=== PATIENT | female | born 1945 | race Caucasian/White ===

== ENCOUNTER 2018-05-31 18:49 | Inpatient (IN) | payer OTHER ==
[~2018-05-31] VITALS: Ht 160 cm; Wt 81.4 kg
[~2018-05-31 18:49] MED LIST: APAP/HYDROCODON1 T13 PO; ASPIRIN81 MG PO; BENAZEPRIL10 M1 PO; BOOST PO; CALCIUM 500 + D1 TA1 PO; CEFTRIAXON1 GM/50 M1 IV; FERROUS SULFAT325 M2 PO; FISH OIL1000 MG PO; GARLIC OIL NA1000 MG PO; GLUCOSAMINE500 MG PO; HEP5I SC; KEY-E400 IU PO; LAC PO; LORATADINE10 M2 PO; MULTIPLE VITAMI1 TA3 PO; OMEPRAZOLE DR20 M1 PO; VAN1PM IV; VITAMIN B12 PO; VITAMIN C500 M4 PO; [UNRECOGNIZED DRUG - CODE] PO
[2018-05-31 18:57] VITALS: Ht 160 cm; Wt 81.4 kg
[2018-05-31 19:32] LABS: PLATELET COUNT 209 x10^3mcL (130-400); RED CELL DISTRIBUTION WIDTH 14.4 % (11.5-14.5)
[2018-05-31 19:35] LABS: CALCIUM 8.3 mg/dL (8.5-10.1); CHLORIDE SERUM 95 mmol/L (98-107); GLUCOSE SERUM 169 mg/dL (74-106); POTASSIUM SERUM 4.1 mmol/L (3.5-5.1); SODIUM SERUM 130 mmol/L (136-145)
[2018-05-31 19:40] LABS: ALBUMIN 3.6 g/dL (3.4-5.0); ALKALINE PHOSPHATASE 80 U/L (46-116); ALT/SGPT 20 U/L (14-59); AST/SGOT 18 U/L (15-37); TOTAL PROTEIN, SERUM 5.9 g/dL (6.4-8.2)
[2018-05-31 20:42] LABS: ATYPICAL LYMPH 6 %; BAND NEUTROPHIL 1 % (0-10); BASOPHIL 0 % (0-2); BLAST 6 % (0); MONOCYTE 4 % (0-7); MYELOCYTE 1 % (0-2); SEGMENTED NEUTROPHILS 8 % (37-75)
[2018-05-31 20:43] LABS: rbc morphology (normal/abnorm) ABNORMAL (NORMAL)
[2018-05-31 20:48] LABS: PLATELET MORPHOLOGY PLATELETS NORMAL
[2018-05-31 20:49] LABS: PATH REVIEW for HEMA YES
[2018-05-31] MEDS ORDERED: GABAPENTIN100 M2 PO (21:03)
[2018-05-31 22:51] VITALS: BP 125/72
[2018-06-01 04:18] LABS: microscopic required? NO
[2018-06-01 04:35] LABS: urine erythrocyte NEGATIVE (NEGATIVE)
[2018-06-01 05:19] VITALS: BP 125/68
[2018-06-01 06:34] LABS: PLATELET COUNT 211 x10^3mcL (130-400); RED CELL DISTRIBUTION WIDTH 14.5 % (11.5-14.5)
[2018-06-01 06:40] LABS: CALCIUM 8.5 mg/dL (8.5-10.1); CARBON DIOXIDE 30.6 mmol/L (21-32); CHLORIDE SERUM 101 mmol/L (98-107); CREATININE SERUM 0.6 mg/dL (0.6-1.0); GLUCOSE SERUM 83 mg/dL (74-106); POTASSIUM SERUM 4.3 mmol/L (3.5-5.1); SODIUM SERUM 136 mmol/L (136-145)
[2018-06-01 08:48] VITALS: BP 137/68
[2018-06-01 10:07] VITALS: BP 137/68
[2018-06-01 12:56] LABS: BAND NEUTROPHIL 1 % (0-10); BASOPHIL 0 % (0-2); MONOCYTE 20 % (0-7); SEGMENTED NEUTROPHILS 42 % (37-75)
[2018-06-01 12:57] LABS: PLATELET MORPHOLOGY PLATELETS DECREASED; rbc morphology (normal/abnorm) ABNORMAL (NORMAL)
== END 2018-06-01 12:30 | disposition home or self-care (01) | DRG 641 ==
LOC: ED 18:49 → DU 20:58
PROVIDERS: Emergency Medicine; Internal Medicine Pulmonary Disease
DX: E86.0 Dehydration (principal); C91.11 Chronic lymphocytic leukemia of B-cell type in remission; Z79.82 Long term (current) use of aspirin; Z96.651 Presence of right artificial knee joint; Z68.30 Body mass index [BMI] 30.0-30.9, adult
CPT/HCPCS: 85060; J7040; Q0092